=== PATIENT | female | born 1975 | race Caucasian/White ===

== ENCOUNTER 2022-10-10 10:17 | Day surgery (SDC) | payer BC ==
[~2022-10-10 10:17] MED LIST: Lactated Ringers 1,000 ML IV SCH; Propofol 200 MG/20 ML SDV ONE
[2022-10-10] MEDS ORDERED: Lidocaine 2% 5 ML SDV ONE (12:45)
[2022-10-10] MEDS ORDERED: Propofol 200 MG/20 ML SDV ONE ×2 (12:55→13:15)
[2022-10-10] MEDS ORDERED: Lactated Ringers 1,000 ML IV SCH (13:30)
== END 2022-10-10 14:00 | disposition home or self-care (01) ==
LOC: MW.SDS 10:17
PROVIDERS: ATTEND Surgery
DX: D12.2 Benign neoplasm of ascending colon (principal); K62.1 Rectal polyp; K29.50 Unspecified chronic gastritis without bleeding; K20.90 Esophagitis, unspecified without bleeding; K31.7 Polyp of stomach and duodenum; I10 Essential (primary) hypertension; Z79.899 Other long term (current) drug therapy; Z83.438 Family history of other disorder of lipoprotein metabolism and other lipidemia; Z82.49 Family history of ischemic heart disease and other diseases of the circulatory system; Z80.42 Family history of malignant neoplasm of prostate; Z72.0 Tobacco use
CPT/HCPCS: 43239; 45380; 81025; J2704; J7120; 00813; J3490